=== PATIENT | male | born 1985 | race Caucasian/White ===

== ENCOUNTER 2017-03-10 12:03 | Emergency (ER) | payer OTHER ==
[~2017-03-10] VITALS: Ht 175.3 cm; Wt 72.6 kg
[~2017-03-10 12:03] MED LIST: Acetaminophen-1 EAC1 PO; LOPE2C PO; Mobic15 MG PO; Protonix40 MG PO; Robaxin500 MG PO; Voltaren100 GM TOP; Zofran Odt8 MG SL
[2017-03-10] MEDS ORDERED: METCAR500 PO (13:09)
== END 2017-03-10 13:29 | disposition home or self-care (01) ==
LOC: ER 12:03
DX: S39.012A Strain of muscle, fascia and tendon of lower back, initial encounter (principal); Z87.891 Personal history of nicotine dependence; Z90.89 Acquired absence of other organs; Z88.8 Allergy status to other drugs, medicaments and biological substances; X58.XXXA Exposure to other specified factors, initial encounter; Y99.0 Civilian activity done for income or pay
CPT/HCPCS: 99282

== ENCOUNTER 2017-05-03 23:07 | Emergency (ER) | payer OTHER ==
[~2017-05-03] VITALS: Ht 177.8 cm; Wt 74.8 kg
[~2017-05-03 23:07] MED LIST changes: +METCAR500 PO
[2017-05-03] MEDS ORDERED: ERYT1OIN LEFTEYE (23:55)
[2017-05-03] MEDS ORDERED: Zithromax250 MG PO (23:55)
== END 2017-05-04 00:20 | disposition home or self-care (01) ==
LOC: ER 23:07
DX: S00.212A Abrasion of left eyelid and periocular area, initial encounter (principal); S60.413A Abrasion of left middle finger, initial encounter; S60.415A Abrasion of left ring finger, initial encounter; Z88.8 Allergy status to other drugs, medicaments and biological substances; Z87.891 Personal history of nicotine dependence; W55.03XA Scratched by cat, initial encounter
CPT/HCPCS: 96372; 99283; J1885